=== PATIENT | female | born 1995 | race Caucasian/White ===

== ENCOUNTER 2019-10-24 17:19 | Inpatient (IN) | payer BC ==
[~2019-10-24] VITALS: Ht 160 cm; Wt 86.3 kg
[2019-10-24 17:39] VITALS: BP 100/61
[2019-10-24] MEDS ORDERED: D5%-LACTATED RINGERS 1,000 ML IV SCH (18:39)
[2019-10-24] MEDS ORDERED: LACTATED RINGERS 1,000 ML IV SCH ×2 (18:39→23:33)
[2019-10-24] MEDS ORDERED: OXYTOCIN 30U/ 0.9% NaCL 500ML 500 ML IV ONE (18:39)
[2019-10-24] MEDS ORDERED: METOCLOPRAMIDE 5 MG/ML, 2ML ONE (18:59)
[2019-10-24] MEDS ORDERED: SODIUM CITRATE/CITRIC ACID 30 ML UDC ONE (18:59)
[2019-10-24] MEDS ORDERED: OXYTOCIN 30U/ 0.9% NaCL 500ML 500 ML ONE (18:59)
[2019-10-24] MEDS ORDERED: NEWBORN KIT ONE (18:59)
[2019-10-24] MEDS ORDERED: ONDANSETRON 2MG/ML, 2ML IVPush PRN (19:00)
[2019-10-24] MEDS ORDERED: FENTANYL PF 100 MCG/2ML IV PRN (19:00)
[2019-10-24] MEDS ORDERED: SODIUM CITRATE/CITRIC ACID 30 ML UDC PO PRN (19:00)
[2019-10-24] MEDS ORDERED: TERBUTALINE 1 MG/ML, 1ML IVPush PRN (19:00)
[2019-10-24] MEDS ORDERED: FENTANYL PF 100 MCG/2ML IVPush PRN (19:00)
[2019-10-24] MEDS ORDERED: TERBUTALINE 1 MG/ML, 1ML SQ PRN (19:00)
[2019-10-24] MEDS ORDERED: METOCLOPRAMIDE 5 MG/ML, 2ML IVPush PRN (19:00)
[2019-10-24] MEDS ORDERED: AZITHROMYCIN 500 MG in SODIUM CHLORIDE 0.9% 250 ML IV ONE (19:30)
[2019-10-24] MEDS ORDERED: LACTATED RINGERS 1,000 ML IVBOLUS ONE (19:30)
[2019-10-24 19:38] LABS: BASOPHILS # (AUTO) 0.06 x10^3/uL (0-0.1); BASOPHILS % (AUTO) 1 % (0-1); EOSINOPHILS # (AUTO) 0.18 x10^3/uL (0-0.4); EOSINOPHILS % (AUTO) 2 % (1-7); LYMPHOCYTES # (AUTO) 2.25 x10^3/uL (1-3.4); LYMPHOCYTES % (AUTO) 19 % (22-44); MD NO; MEAN CORPUSCULAR HEMOGLOBIN 29.9 pg (27.0-34.8); MEAN CORPUSCULAR HGB CONC 33.1 g/dL (32.4-35.8); MEAN CORPUSCULAR VOLUME 90.2 fL (80-100); MEAN PLATELET VOLUME 7.4 fL (7.4-10.4); MONOCYTES # (AUTO) 0.76 x10^3/uL (0.2-0.8); MONOCYTES % (AUTO) 6 % (2-9); NEUTROPHILS # (AUTO) 8.66 x10^3/uL (1.8-6.8); NEUTROPHILS % (AUTO) 73 % (42-75); PLATELET COUNT 308 x10^3/uL (130-400); RED BLOOD COUNT 4.04 x10^6/uL (3.82-5.3); RED CELL DISTRIBUTION WIDTH 14.9 % (9.6-15.2)
[2019-10-24] MEDS ORDERED: FENTANYL PF 100 MCG/2ML ONE (19:44)
[2019-10-24] MEDS ORDERED: OXYTOCIN 10 UNITS/ML, 1ML ONE ×4 (19:46)
[2019-10-24] MEDS ORDERED: CEFAZOLIN 1,000 MG ONE ×2 (19:46)
[2019-10-24] MEDS ORDERED: KETOROLAC 30 MG/1 ML ONE (19:46)
[2019-10-24] MEDS ORDERED: LIDOCAINE 1%, 20ML ONE (22:15)
[2019-10-24] MEDS ORDERED: EPHEDRINE 50 MG/ML, 1ML ONE ×2 (22:15→22:30)
[2019-10-25] MEDS ORDERED: morphine SULFATE 10 MG/ML, 1ML IVPush PRN
[2019-10-25] MEDS ORDERED: CALCIUM CARBONATE 500 MG TAB.CHEW PO PRN
[2019-10-25] MEDS ORDERED: EPHEDRINE 50 MG/ML, 1ML IVPush PRN
[2019-10-25] MEDS ORDERED: EPHEDRINE 50 MG/ML, 1ML IM PRN
[2019-10-25] MEDS ORDERED: morphine SULFATE 10 MG/ML, 1ML IV PRN
[2019-10-25] MEDS ORDERED: MORPHINE SULFATE 4 MG/ML, 1ML IVPush PRN
[2019-10-25] MEDS ORDERED: SIMETHICONE 80 MG CHEW TAB PO PRN
[2019-10-25] MEDS ORDERED: METOCLOPRAMIDE 5 MG/ML, 2ML IVPush PRN
[2019-10-25] MEDS ORDERED: MISOPROSTOL 200 MCG TABLET PR PRN
[2019-10-25] MEDS ORDERED: ONDANSETRON 2MG/ML, 2ML IVPush PRN
[2019-10-25] MEDS ORDERED: MEPERIDINE/PF 25MG/0.5ML IVPush PRN
[2019-10-25] MEDS ORDERED: ONDANSETRON 2MG/ML, 2ML IV PRN
[2019-10-25] MEDS ORDERED: FENTANYL PF 100 MCG/2ML IV PRN
[2019-10-25] MEDS ORDERED: DIPHENHYDRAMINE 50 MG/ML, 1ML IVPush PRN
[2019-10-25] MEDS ORDERED: LABETALOL 5MG/ML, 20ML IV PRN
[2019-10-25] MEDS ORDERED: OXYcodone 5 MG/5 ML ORAL.SOL UDC PO PRN
[2019-10-25] MEDS ORDERED: OXYcodone 5 MG/5 ML ORAL.SOL UDC ONE (00:03)
[2019-10-25] MEDS: LACTATED RINGERS 1,000 ML IV SCH ×3 (00:14→19:33)
[2019-10-25] MEDS: OXYTOCIN 30U/ 0.9% NaCL 500ML 500 ML IV SCH ×3 (00:14→19:33)
[2019-10-25 00:55] VITALS: BP 107/67
[2019-10-25 04:45] VITALS: BP 106/66
[2019-10-25] MEDS: KETOROLAC 30 MG/1 ML IV SCH ×4 (05:22→17:34)
[2019-10-25] MEDS: OXYcodone/APAP 5/325MG TABLET PO PRN ×6 (05:23→22:30)
[2019-10-25 07:07] LABS: BASOPHILS # (AUTO) 0.01 x10^3/uL (0-0.1); BASOPHILS % (AUTO) 0 % (0-1); EOSINOPHILS # (AUTO) 0.22 x10^3/uL (0-0.4); EOSINOPHILS % (AUTO) 1 % (1-7); LYMPHOCYTES # (AUTO) 1.39 x10^3/uL (1-3.4); LYMPHOCYTES % (AUTO) 9 % (22-44); MD NO; MEAN CORPUSCULAR HEMOGLOBIN 29.7 pg (27.0-34.8); MEAN CORPUSCULAR HGB CONC 33.1 g/dL (32.4-35.8); MEAN CORPUSCULAR VOLUME 89.6 fL (80-100); MEAN PLATELET VOLUME 7.5 fL (7.4-10.4); MONOCYTES % (AUTO) 6 % (2-9); NEUTROPHILS # (AUTO) 13.75 x10^3/uL (1.8-6.8); NEUTROPHILS % (AUTO) 84 % (42-75); PLATELET COUNT 276 x10^3/uL (130-400); RED BLOOD COUNT 4.05 x10^6/uL (3.82-5.3); RED CELL DISTRIBUTION WIDTH 14.6 % (9.6-15.2)
[2019-10-25] MEDS ORDERED: RHOGAM FROM BLOOD BANK 1 NOTE EA IM/IV ONE (08:00)
[2019-10-25 09:12] VITALS: BP 102/65
[2019-10-25] MEDS: DOCUSATE 100 MG CAPSULE PO PRN ×2 (09:25→22:29)
[2019-10-25] MEDS: PRENATAL VIT/IRON/FA 1 EACH TABLET PO SCH (09:25)
[2019-10-25 13:03] VITALS: BP 103/70
[2019-10-25 16:00] VITALS: BP 115/76
[2019-10-25 20:00] VITALS: BP 111/75
[2019-10-26] MEDS: IBUPROFEN 600 MG TABLET PO PRN ×4 (01:09→23:16)
[2019-10-26] MEDS: LACTATED RINGERS 1,000 ML IV SCH ×2 (05:33→19:03)
[2019-10-26] MEDS: OXYTOCIN 30U/ 0.9% NaCL 500ML 500 ML IV SCH ×2 (05:33→19:03)
[2019-10-26] MEDS: PRENATAL VIT/IRON/FA 1 EACH TABLET PO SCH (07:34)
[2019-10-26] MEDS: OXYcodone/APAP 5/325MG TABLET PO PRN ×4 (07:34→23:18)
[2019-10-26] MEDS: DOCUSATE 100 MG CAPSULE PO PRN ×2 (07:34→23:17)
[2019-10-26 08:48] VITALS: BP 113/79
[2019-10-26 19:55] VITALS: BP 115/75
[2019-10-27] MEDS: LACTATED RINGERS 1,000 ML IV SCH (01:33)
[2019-10-27] MEDS: OXYTOCIN 30U/ 0.9% NaCL 500ML 500 ML IV SCH (01:33)
[2019-10-27] MEDS: OXYcodone/APAP 5/325MG TABLET PO PRN (06:07)
[2019-10-27 07:20] VITALS: BP 114/73
[2019-10-27] MEDS: DOCUSATE 100 MG CAPSULE PO PRN (08:53)
[2019-10-27] MEDS: PRENATAL VIT/IRON/FA 1 EACH TABLET PO SCH (08:53)
[2019-10-27] MEDS ORDERED: DOCU-131 PO (09:43)
[2019-10-27] MEDS ORDERED: OXYC-302 PO (09:43)
[2019-10-27] MEDS ORDERED: IBUP-1222 PO (09:43)
[2019-10-27] MEDS: IBUPROFEN 600 MG TABLET PO PRN (10:26)
== END 2019-10-27 10:30 | disposition home or self-care (01) | DRG 788 ==
LOC: LDOP 17:19 → LDIP 18:43 → 2NW 10-25 02:05
PROVIDERS: ADMIT Student in an Organized Health Care Education/Training Program; ATTEND Student in an Organized Health Care Education/Training Program
PROC: 10D00Z1 Extraction of Products of Conception, Low, Open Approach (ICD-10-PCS; principal; 2019-10-24)
PROC: 3E0234Z Introduction of Serum, Toxoid and Vaccine into Muscle, Percutaneous Approach (ICD-10-PCS; 2019-10-25)
DX: O32.1XX0 Maternal care for breech presentation, not applicable or unspecified (principal); O42.913 Preterm premature rupture of membranes, unspecified as to length of time between rupture and onset of labor, third trimester; Z37.0 Single live birth; Z3A.36 36 weeks gestation of pregnancy; Z80.41 Family history of malignant neoplasm of ovary
CPT/HCPCS: 36415; J3490; 84112; 85025; 85461; 86592; 86850; 86870; 86900; 86922; 86923; G0378; J0456; J0690; J1885; J2790; J3010; J2590; J7050; J7120

== ENCOUNTER 2020-10-11 18:22 | Outpatient (CLI) | payer BC ==
[~2020-10-11] VITALS: Ht 160 cm; Wt 86.4 kg
[~2020-10-11 18:22] MED LIST: DOCU-131 PO; IBUP-1222 PO; OXYC1TAB14 PO
== END 2020-10-11 19:07 | disposition home or self-care (01) ==
LOC: LDOP 18:22
PROVIDERS: ATTEND Student in an Organized Health Care Education/Training Program
DX: O36.8130 Decreased fetal movements, third trimester, not applicable or unspecified (principal); Z3A.31 31 weeks gestation of pregnancy
CPT/HCPCS: 59025

== ENCOUNTER 2020-11-30 01:39 | Outpatient (CLI) | payer BC ==
[~2020-11-30] VITALS: Ht 160 cm; Wt 88.6 kg
[2020-11-30 03:37] LABS: MICROSCOPIC INDICATED
== END 2020-11-30 04:04 | disposition home or self-care (01) ==
LOC: LDOP 01:39
PROVIDERS: ATTEND Student in an Organized Health Care Education/Training Program
DX: O26.893 Other specified pregnancy related conditions, third trimester (principal); R10.9 Unspecified abdominal pain; Z3A.38 38 weeks gestation of pregnancy
CPT/HCPCS: 59025; 81001; 87086

== ENCOUNTER 2020-12-01 07:06 | Inpatient (IN) | payer BC ==
[~2020-12-01] VITALS: Ht 160 cm; Wt 88.6 kg
[2020-12-01] MEDS ORDERED: OXYTOCIN 30U/ 0.9% NaCL 500ML 500 ML ONE (07:20)
[2020-12-01] MEDS ORDERED: NEWBORN KIT ONE (07:20)
[2020-12-01] MEDS ORDERED: TERBUTALINE 1 MG/ML, 1ML SQ PRN (07:30)
[2020-12-01] MEDS ORDERED: LACTATED RINGERS 1,000 ML IV SCH ×2 (07:30→08:30)
[2020-12-01] MEDS ORDERED: METOCLOPRAMIDE 5 MG/ML, 2ML IVPush PRN (07:30)
[2020-12-01] MEDS ORDERED: OXYTOCIN 30U/ 0.9% NaCL 500ML 500 ML IV ONE (07:30)
[2020-12-01] MEDS ORDERED: TERBUTALINE 1 MG/ML, 1ML IVPush PRN (07:30)
[2020-12-01] MEDS ORDERED: FENTANYL PF 100 MCG/2ML IVPush PRN (07:30)
[2020-12-01] MEDS ORDERED: FENTANYL PF 100 MCG/2ML IV PRN (07:30)
[2020-12-01] MEDS ORDERED: D5%-LACTATED RINGERS 1,000 ML IV SCH (07:30)
[2020-12-01] MEDS ORDERED: ONDANSETRON 2MG/ML, 2ML IVPush PRN (07:30)
[2020-12-01] MEDS ORDERED: PENICILLIN GK 5,000,000 UNITS in DEXTROSE 5% 100 ML IVPB ONE (08:00)
[2020-12-01 08:08] LABS: BASOPHILS % (AUTO) 1 % (0-1); EOSINOPHILS % (AUTO) 1 % (1-7); LYMPHOCYTES % (AUTO) 11 % (22-44); MEAN CORPUSCULAR HEMOGLOBIN 29.8 pg (27.0-34.8); MEAN CORPUSCULAR HGB CONC 33.2 g/dL (32.4-35.8); MEAN PLATELET VOLUME 7.5 fL (7.4-10.4); MONOCYTES % (AUTO) 6 % (2-9); NEUTROPHILS % (AUTO) 83 % (42-75); PLATELET COUNT 284 x10^3/uL (130-400); RED BLOOD COUNT 3.93 x10^6/uL (3.82-5.3); RED CELL DISTRIBUTION WIDTH 16.2 % (9.6-15.2)
[2020-12-01] MEDS ORDERED: LACTATED RINGERS 1,000 ML IVBOLUS PRN (08:30)
[2020-12-01] MEDS ORDERED: FENTANYL/BUPIV./NS/PF 250 ML EPIDCONT SCH (08:30)
[2020-12-01] MEDS ORDERED: NALOXONE 0.4 MG/ML, 1ML IVPush PRN (08:30)
[2020-12-01] MEDS ORDERED: EPHEDRINE 50 MG/ML, 1ML IVPush PRN (08:30)
[2020-12-01] MEDS ORDERED: BUPIVACAINE 0.25% ONE (08:48)
[2020-12-01] MEDS ORDERED: SODIUM CITRATE/CITRIC ACID 15 ML UDC ONE (10:06)
[2020-12-01] MEDS ORDERED: OXYTOCIN 30U/ 0.9% NaCL 500ML 500 ML IV PRN (11:30)
[2020-12-01] MEDS ORDERED: PENICILLIN GK 2,500,000 UNITS in DEXTROSE 5% 100 ML IVPB SCH (12:00)
[2020-12-01] MEDS ORDERED: IBUPROFEN 600 MG TABLET ONE (14:00)
[2020-12-01] MEDS: OXYTOCIN 30U/ 0.9% NaCL 500ML 500 ML IV SCH (14:30)
[2020-12-01] MEDS ORDERED: ONDANSETRON 2MG/ML, 2ML IV PRN (15:00)
[2020-12-01] MEDS ORDERED: MISOPROSTOL 200 MCG TABLET PR PRN (15:00)
[2020-12-01] MEDS ORDERED: HYDROcodone/APAP 5/325 TABLET PO PRN (15:00)
[2020-12-01] MEDS ORDERED: IBUPROFEN 800 MG TABLET PO PRN (15:00)
[2020-12-01] MEDS ORDERED: ACETAMINOPHEN 325 MG TABLET PO PRN (15:00)
[2020-12-01] MEDS ORDERED: RHOGAM FROM BLOOD BANK 1 NOTE EA IM/IV ONE (15:00)
[2020-12-01] MEDS ORDERED: BISACODYL 10 MG SUPP PR PRN (15:00)
[2020-12-01] MEDS ORDERED: [UNRECOGNIZED DRUG - OTHER] IVPB ONE (15:30)
[2020-12-01 17:32] VITALS: BP 108/65
[2020-12-01 19:50] VITALS: BP 116/77
[2020-12-01 20:28] LABS: BASOPHILS % (AUTO) 0 % (0-1); EOSINOPHILS % (AUTO) 1 % (1-7); LYMPHOCYTES % (AUTO) 11 % (22-44); MEAN CORPUSCULAR HEMOGLOBIN 29.6 pg (27.0-34.8); MEAN PLATELET VOLUME 7.8 fL (7.4-10.4); MONOCYTES % (AUTO) 7 % (2-9); NEUTROPHILS % (AUTO) 81 % (42-75); PLATELET COUNT 253 x10^3/uL (130-400); RED CELL DISTRIBUTION WIDTH 16.6 % (9.6-15.2)
[2020-12-01] MEDS: DOCUSATE 100 MG CAPSULE PO SCH (21:30)
[2020-12-01] MEDS: IBUPROFEN 800 MG TABLET PO PRN (21:30)
[2020-12-01] MEDS: OXYcodone/APAP 5/325MG TABLET PO PRN (21:30)
[2020-12-02 00:30] VITALS: BP 103/69
[2020-12-02] MEDS: OXYTOCIN 30U/ 0.9% NaCL 500ML 500 ML IV SCH (01:00)
[2020-12-02 04:20] VITALS: BP 112/70
[2020-12-02] MEDS: IBUPROFEN 800 MG TABLET PO PRN ×2 (05:36→14:47)
[2020-12-02] MEDS: OXYcodone/APAP 5/325MG TABLET PO PRN (05:36)
[2020-12-02 07:30] VITALS: BP 110/71
[2020-12-02] MEDS ORDERED: PRENATAL VIT/IRON/FA 1 EACH TABLET PO SCH (09:00)
[2020-12-02] MEDS ORDERED: DOCU-131 PO (12:13)
[2020-12-02] MEDS ORDERED: OXYC1TAB14 PO (12:13)
[2020-12-02] MEDS ORDERED: IBUP-1222 PO (12:13)
[2020-12-02] MEDS: DOCUSATE 100 MG CAPSULE PO SCH (14:46)
== END 2020-12-02 14:50 | disposition home or self-care (01) | DRG 807 ==
LOC: LDOP 07:06 → LDIP 07:17 → 2NW 16:47
PROVIDERS: ADMIT Student in an Organized Health Care Education/Training Program; ATTEND Student in an Organized Health Care Education/Training Program
PROC: 10E0XZZ Delivery of Products of Conception, External Approach (ICD-10-PCS; principal; 2020-12-01)
PROC: 0UQMXZZ Repair Vulva, External Approach (ICD-10-PCS; 2020-12-01)
PROC: 0UCG7ZZ Extirpation of Matter from Vagina, Via Natural or Artificial Opening (ICD-10-PCS; 2020-12-01)
PROC: 3E0R3BZ Introduction of Anesthetic Agent into Spinal Canal, Percutaneous Approach (ICD-10-PCS; 2020-12-01)
PROC: 00HU33Z Insertion of Infusion Device into Spinal Canal, Percutaneous Approach (ICD-10-PCS; 2020-12-01)
PROC: 3E0234Z Introduction of Serum, Toxoid and Vaccine into Muscle, Percutaneous Approach (ICD-10-PCS; 2020-12-02)
DX: O99.824 Streptococcus B carrier state complicating childbirth (principal); Z37.0 Single live birth; O34.211 Maternal care for low transverse scar from previous cesarean delivery; O69.1XX0 Labor and delivery complicated by cord around neck, with compression, not applicable or unspecified; Z20.822 Contact with and (suspected) exposure to COVID-19; O70.1 Second degree perineal laceration during delivery; Z3A.38 38 weeks gestation of pregnancy; Z86.16 Personal history of COVID-19; Z90.49 Acquired absence of other specified parts of digestive tract
CPT/HCPCS: 36415; 85025; 85461; 86592; 86850; 86900; 87635; G0378; J0690; J2540; J2790; J2590; J7120